=== PATIENT | male | born 1985 ===

== ENCOUNTER 2020-05-18 00:05 | Emergency (ER) | payer MEDICARE ==
[~2020-05-18] VITALS: Ht 177.8 cm; Wt 83.9 kg
[2020-05-18] MEDS ORDERED: SERT100 PO (00:25)
[2020-05-18] MEDS ORDERED: Zoloft100 MG PO (02:40)
== END 2020-05-18 02:57 | disposition home or self-care (01) ==
LOC: ER 00:05
DX: Z76.0 Encounter for issue of repeat prescription (principal); F32.9 Major depressive disorder, single episode, unspecified; Z79.899 Other long term (current) drug therapy
CPT/HCPCS: 99281; A9270